=== PATIENT | female | born 1970 | race Caucasian/White ===

== ENCOUNTER → 2016-04-13 | Outpatient (CLI) | payer BC ==
--- NOTE | 2016-04-14 07:11 | CT ---
EXAMINATION TYPE: CT brain w con DATE OF EXAM: 04/13/2016 7:16 PM COMPARISON: MRI brain March 02, 2015. 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 Headaches x [address] DLP: 1040.60 mGycm Automated Exposure Control for Dose Reduction was Utilized. TECHNIQUE: CT scan of the head is performed with IV contrast.,CT scan of the head is performed withou t and with with IV Contrast, patient injected with 100 mL of Omnipaque 300. FINDINGS: The ventricles and sulci are within normal limits in size. Postcontrast images show no hill picious enhancing intraparenchymal mass. Vague areas of low-attenuation periventricular white matter remain present. The globes are intact and the visualized sinuses are clear. IMPRESSION: Mild to moderate nonspecific white matter changes redemonstrated could reflect product of prior treated lesions among the broad differential. No enhancing lesions are evident on today's stud y.
== END | disposition home or self-care (01) ==
LOC: RADCTMAIN 18:43
PROVIDERS: ATTEND Internal Medicine Hematology & Oncology
DX: C85.90 Non-Hodgkin lymphoma, unspecified, unspecified site (principal); R90.82 White matter disease, unspecified
CPT/HCPCS: 70460; Q9967

== ENCOUNTER → 2017-04-16 | Outpatient (CLI) | payer BC ==
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
== END | disposition home or self-care (01) ==
LOC: RADCTMAIN 08:02
PROVIDERS: ATTEND Neurological Surgery
DX: I62.03 Nontraumatic chronic subdural hemorrhage (principal)
CPT/HCPCS: 70450

== ENCOUNTER → 2017-05-08 | Outpatient (CLI) | payer BC ==
--- NOTE | 2017-05-08 19:37 | CT ---
EXAMINATION TYPE: CT brain wo con DATE OF EXAM: 05/08/2017 COMPARISON: 04/16/2017 HISTORY: Follow-up intra cranial subdural hematoma. 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 CT DLP: 1017.9 mGycm. Automated Exposure Control for Dose Reduction was Utilized. TECHNIQUE: CT scan of the head is performed without contrast. FINDINGS: There are bilateral frontal and parietal craniotomy defects. There is no mass effect nor midline shift. There is no sign of acute intracranial hemorrhage. The calvarium is intact. There is i ntermediate density involving the subdural space along the right parietal convexity. There is no evid ence of cortical infarct. CONCLUSION: There is some chronic density involving the subdural space on the right side consistent with a mild s ubdural hygroma and chronic hematoma that is not changed in size compared to last exam. No acute intr acranial abnormality. This measures up to 4 mm in thickness.
== END | disposition home or self-care (01) ==
LOC: RADCTMAIN 18:56
PROVIDERS: ATTEND Neurological Surgery
DX: R93.0 Abnormal findings on diagnostic imaging of skull and head, not elsewhere classified (principal)
CPT/HCPCS: 70450

== ENCOUNTER 2022-05-31 11:54 | Emergency (ER) | payer OTHER, BC ==
[2022-05-31 12:10] VITALS: BP 118/78; PULSE 80; RESP 18; TEMP 98.3
--- NOTE | 2022-05-31 12:55 | CT ---
EXAMINATION TYPE: CT brain wo con DATE OF EXAM: 05/31/2022 HISTORY: Head injury. Hx of intracranial hemorrhage. CT DLP: 1145.4 mGycm. Automated Exposure Control for Dose Reduction was Utilized. TECHNIQUE: CT scan of the head is performed without contrast. COMPARISON: CT brain 2018. FINDINGS: There is no acute intracranial hemorrhage or midline shift identified. There is mild to m oderate diffuse ventricular and sulcal prominence consistent redemonstrated. Is prominent sulcal effa cement over the bilateral frontal and temporal lobes is redemonstrated. There is mild to moderate low -attenuation in the deep and periventricular white matter redemonstrated. Empty sella morphology aga in seen. The globes are intact and the visualized sinuses are clear. The calvarium is intact. IMPRESSION: No acute intracranial hemorrhage or midline shift. There is mild to moderate diffuse ce rebral atrophy and chronic small vessel ischemic change redemonstrated. No significant change from [address]
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
== END 2022-05-31 13:40 | disposition home or self-care (01) ==
LOC: SUPCPDRO 11:54 → EC 11:54
DX: S09.90XA Unspecified injury of head, initial encounter (principal); I67.82 Cerebral ischemia; F41.9 Anxiety disorder, unspecified; W22.8XXA Striking against or struck by other objects, initial encounter
CPT/HCPCS: 70450; 99283

== ENCOUNTER 2023-11-02 08:45 | Observation (INO) | payer BC, OTHER ==
[2023-11-02 08:50] VITALS: PULSE 94; TEMP 98
--- NOTE | 2023-11-02 09:30 | XR ---
EXAMINATION TYPE: XR chest 2V DATE OF EXAM: 11/02/2023 COMPARISON: NONE TECHNIQUE: PA and lateral views submitted. HISTORY: Chest pain FINDINGS: The lungs are clear and there is no pneumothorax, pleural effusion, or focal pneumonia. Heart size normal and no overt failure. Osseous structures demonstrate hypertrophic and degenerative changes of the spine. Prominent right hilum. Areas of nodularity. Surgical clips gallbladder fossa. IMPRESSION: 1. No acute process. 2. There is a prominent right hilum which could reflect enlarged pulmonary artery. Recommend short-te rm follow-up chest CT r to exclude mass or adenopathy.
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
[2023-11-02 09:46] LABS: Basophils % (A) 1 %; Eosinophils # (A) 0.1 k/uL (0-0.7); Eosinophils % (A) 1 %; HCT 36.1 % (34.0-46.0); HGB 12.3 gm/dL (11.4-16.0); Lymphocytes # (A) 2.6 k/uL (1.0-4.8); Lymphocytes % (A) 42 %; MCH 32.6 pg (25.0-35.0); Monocytes # (A) 0.5 k/uL (0-1.0); Monocytes % (A) 9 %; Neutrophils # (A) 2.8 k/uL (1.3-7.7); Neutrophils % (A) 46 %; Platelet Count 258 k/uL (150-450); RBC 3.76 m/uL (3.80-5.40); WBC 6.2 k/uL (3.8-10.6)
[2023-11-02 09:51] LABS: INR 0.9 (<1.2); Partial Thromboplastin Time 25.2 sec (22.0-30.0); Prothrombin Time 10.5 sec (10.0-12.5)
[2023-11-02 09:57] LABS: ALT 20 U/L (4-34); AST 28 U/L (14-36); African American GFR (CKD) 63 (>60 ml/min/1.73 sqM); Albumin 4.5 g/dL (3.5-5.0); Alkaline Phosphatase 72 U/L (38-126); Anion Gap 9 mmol/L; Blood Urea Nitrogen 22 mg/dL (7-17); Calcium 9.5 mg/dL (8.4-10.2); Carbon Dioxide 27 mmol/L (22-30); Chloride 102 mmol/L (98-107); Glucose 90 mg/dL (74-99); Magnesium 1.9 mg/dL (1.6-2.3); Non-African American GFR(CKD) 55 (>60 ml/min/1.73 sqM); Potassium 4.3 mmol/L (3.5-5.1); Sodium 138 mmol/L (137-145); Total Bilirubin 0.6 mg/dL (0.2-1.3); Total Protein 7.4 g/dL (6.3-8.2)
[2023-11-02] MEDS ORDERED: NITROGLYCERIN SL TABS 0.4 MG TAB SUBLINGUAL PRN (11:19)
[2023-11-02] MEDS ORDERED: RX INFO: IV CONTRAST WAS GIVEN 1 EACH MISC MISCELLANE PRN (11:47)
[2023-11-02 12:30] VITALS: BP 112/67
[2023-11-02] MEDS: ASPIRIN 81 MG PO STA (12:39)
--- NOTE | 2023-11-02 13:55 | CT ---
EXAMINATION TYPE: CT chest w con CT DLP: 300.5 mGycm, Automated exposure control for dose reduction was used. DATE OF EXAM: 11/02/2023 12:41 PM COMPARISON: Chest radiograph from 11/02/2023, 09/06/2015 CLINICAL INDICATION: Female, 53 years old with history of follow up, r/o mass near pulmonary artery; [facility], CHEST PAIN TECHNIQUE: Multiple axial images were obtained through the chest. Sagittal and coronal reformats were created for review. Contrast used:80 mL of Isovue 300 with IV Contrast (None if empty) Oral contrast used: (None if empty) FINDINGS: LUNGS/ PLEURA: No focal consolidation, pneumothorax or pleural effusion. Calcified lymph nodes are se en near the right pulmonary hilum AIRWAY: Patent and unremarkable. HEART: Size within normal limits. MEDIASTINUM: No gross evidence of adenopathy. Calcified lymph nodes are seen near the right pulmonary hilum correlating with radiograph same day. VASCULATURE: No aortic aneurysm. MUSCULOSKELETAL: No acute osseous abnormalities SOFT TISSUES/LYMPH NODES: Unremarkable. LOWER NECK: No significant findings. UPPER ABDOMEN: Gallbladder surgically absent. IMPRESSION: Right pulmonary hilum calcified lymph nodes, no suspicious mass identified. Findings could be related to posttreatment change.
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
[2023-11-02 15:42] VITALS: RESP 16
--- NOTE | 2023-11-02 17:38 | P.DS ---
Providers Date of admission: 11/02/23 11:20 Expected date of discharge: 11/02/23 Attending physician: Shea Waite MD Consults: 11/02/23 11:19 Consult Physician Urgent Consulting Provider: Simeon Nieves Consult Reason/Comments: chest pain Do you want consulting provider notified?: Yes Primary care physician: Gaby Gardner DO Hospital Course: THIS IS NOT A DISCHARGE SUMMARY BUT A SUMMARY OF CARE PT LEFT AGAINST MEDICAL ADVICE on 11/02/2023 at 3:42 PM: Chest pain, rule out acute coronary event History of stage IV lymphoma Ulcerative colitis Anxiety Hospital Course: Patient is a pleasant 53-year-old female with a past medical history of stage IV lymphoma currently in remission since 2012, ulcerative colitis, hypothyroidism, and anxiety. She presented to the emergency department with a chief complaint of chest pain. Patient reports pain to midsternal chest radiating into her both sides of her chest and into her back and bilateral shoulders. She reports yesterday having some generalized pains radiating down her back into her legs and up to her head but states this morning experiencing sudden onset chest pain. She denies having any dizziness, lightheadedness, palpitations, shortness of breath, cough or congestion, abdominal pain, nausea, vomiting, numbness/swelling/weakness in her extremities or experiencing any other complaints at this time. Upon arrival to our facility, patient underwent evaluation in the emergency department. Vital signs upon arrival show blood pressure 118/80, heart rate 94, respiratory rate 18, temp 98.0 F, and SpO2 of 99% on room air. EKG completed showing normal sinus rhythm at 88 bpm with an incomplete right bundle branch block and no noted T wave or ST abnormalities showing no signs of acute ischemia upon personal review and interpretation. Chest x-ray was completed showing a prominent right hilum possibly reflecting enlarged pulmonary artery recommend CT to exclude mass or adenopathy. Labs were completed and reviewed. CBC unremarkable. Coagulation profile normal findings. D-dimer negative at 0.21. BMP showing mild prerenal azotemia with BUN of 22 and creatinine of 1.15 with GFR of 55. Blood glucose was 90. Magnesium 1.9. Liver profile unremarkable. Troponin was negative at less than 0.012. Patient was admitted under services with consultation to cardiology. CT chest with IV contrast revealed right pulmonary hilum calcified lymph nodes, no suspicious mass identified findings likely secondary to posttreatment changes. Troponins were trended resulting at less than 0.012 x 3 draws. Notified by RN that patient left AGAINST MEDICAL ADVICE on 11/02/2023 at 3:42 PM. PT LEFT AGAINST MEDICAL ADVICE on 11/02/2023 at 3:42 PM: This document was prepared using [employer] dictation software. Please allow for errors in regional planner while rare they do occur. I reviewed the documentation as provided by the YASMIN above, who is the original author of this note. I agree with the documented assessment and plan, with the following changes: none Patient Condition at Discharge: Undetermined Plan - Discharge Summary New Discharge Prescriptions: No Action Gabapentin 600 mg PO BID Divalproex ER [Depakote ER] 250 mg PO DAILY busPIRone HCL 15 mg PO BID Ezetimibe [Zetia] 10 mg PO HS Magnesium Oxide [Mag-Ox] 400 mg PO DAILY Doxylamine Succinate [Unisom] 50 mg PO HS Levothyroxine Sodium [Synthroid] 25 mcg PO DAILY Cranberry Fruit Concentrate [Azo Cranberry] 250 mg PO DAILY sulfaSALAzine 500 mg PO BID Calcium Carbonate/Vitamin D3 [Calcium 600 mg-Vit D3 10 mcg (400 Unit)] 1 tab PO DAILY Discharge Medication List Cranberry Fruit Concentrate [Azo Cranberry] 250 mg PO DAILY 05/31/22 [History] Divalproex ER [Depakote ER] 250 mg PO DAILY 05/31/22 [History] Gabapentin 600 mg PO BID 05/31/22 [History] Calcium Carbonate/Vitamin D3 [Calcium 600 mg-Vit D3 10 mcg (400 Unit)] 1 tab PO DAILY 11/02/23 [History] Doxylamine Succinate [Unisom] 50 mg PO HS 11/02/23 [History] Ezetimibe [Zetia] 10 mg PO HS 11/02/23 [History] Levothyroxine Sodium [Synthroid] 25 mcg PO DAILY 11/02/23 [History] Magnesium Oxide [Mag-Ox] 400 mg PO DAILY 11/02/23 [History] busPIRone HCL 15 mg PO BID 11/02/23 [History] sulfaSALAzine 500 mg PO BID 11/02/23 [History] Follow up Appointment(s)/Referral(s): Gaby Gardner DO [Primary Care Provider] - 1-2 days Discharge Disposition: LEFT AGAINST MEDICAL ADVICE
[2023-11-02] MEDS ORDERED: busPIRone HCl 5 MG TAB PO SCH (21:00)
[2023-11-02] MEDS ORDERED: GABAPENTIN 300 MG CAP PO SCH (21:00)
[2023-11-02] MEDS ORDERED: EZETIMIBE 10 MG TAB PO SCH (21:00)
[2023-11-02] MEDS ORDERED: PATIENT'S OWN (Doxylamine Succinate [Unisom] 25 MG Tablet) PO SCH (21:00)
[2023-11-02] MEDS ORDERED: sulfaSALAzine 500 MG TAB PO SCH (21:00)
[2023-11-03] MEDS ORDERED: LEVOTHYROXINE 25 MCG TAB PO SCH (06:30)
[2023-11-03] MEDS ORDERED: ASPIRIN 81 MG PO SCH (09:00)
[2023-11-03] MEDS ORDERED: MAGNESIUM OXIDE 400 MG TAB PO SCH (09:00)
[2023-11-03] MEDS ORDERED: ASPIRIN 325 MG TAB PO SCH (09:00)
[2023-11-03] MEDS ORDERED: NON FORMULARY DRUG (Cranberry Fruit Concentrate [Azo Cranberry] 250 MG Tab.Chew) PO SCH (09:00)
[2023-11-03] MEDS ORDERED: DIVALPROEX ER 250 MG TAB.ER.24H PO SCH (09:00)
[2023-11-03] MEDS ORDERED: CALCIUM CARB-VIT D 500 MG-5 MCG TAB PO SCH (09:00)
== END 2023-11-02 15:42 | disposition left against medical advice (07) ==
LOC: EC 08:45 → 6NMEDSUR 11:20
PROVIDERS: ADMIT Family Medicine; ATTEND Family Medicine
DX: R07.2 Precordial pain (principal); F41.9 Anxiety disorder, unspecified; E03.9 Hypothyroidism, unspecified; K51.90 Ulcerative colitis, unspecified, without complications; Z85.72 Personal history of non-Hodgkin lymphomas; Z85.828 Personal history of other malignant neoplasm of skin; Z79.82 Long term (current) use of aspirin; Z79.890 Hormone replacement therapy; Z79.899 Other long term (current) drug therapy; Z53.29 Procedure and treatment not carried out because of patient's decision for other reasons
CPT/HCPCS: 36415; 71046; 71260; 80053; 83735; 84484; 85025; 85379; 85610; 85730; 93005; 99285